=== PATIENT | female | born 1980 | race African-American/Black ===

== ENCOUNTER 2024-08-20 14:02 | Emergency (ER) | payer OTHER, SELFPAY ==
[2024-08-20 14:11] VITALS: BP 162/100; PULSE 84; O2SAT 96
[2024-08-20 14:12] VITALS: BP 148/85; PULSE 59; RESP 18; TEMP 36.8; O2SAT 98; BMI 27.5
[2024-08-20 14:31] VITALS: BP 148/85; PULSE 59; RESP 18; TEMP 36.8; O2SAT 98
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
--- OUTSIDE RECORDS SUMMARY | 2024-08-20 15:48 | XMS_ITS | Continuity of Care Document ---
Author Organization [facility] Address [address] [place] [address]- Care Team Providers Care It Support Consultant Name Role Phone Not on Staff, PCP Primary Care Physician Unavail able [place] [facility] [place] 06/19/24 - 07/19/[address] [address] Attending Physician: Matthew Wilson Admitting Physician: Admtr, ArJessy Referring Physician: Admtr, Ar8 Allergies, Adverse Reactions, Alerts Substance Reaction Severity Status penicillins Active Medications misoprostol 200 mcg oral tablet 4 tablet = 800 mcg, Vaginally, Once, Repeat in 24h if no active cramping/bleeding, # 4 tablet, 1 Refills, Soft Stop, 05/16/17 12:44:25, Tablet Start Date: 05/16/17 Status: Ordered Zofran 4 mg oral tablet 1 tablet = 4 mg, By Mouth, Every 8 hours, PRN Nausea & Vomiting, # 6 tablet, 0 Refills, Maintenance, 05/16/17 12:47:53, Tablet Start Date: 05/16/17 Stop Date: 05/18/17 Status: Ordered Problem List Condition Confirmation Course Effective Dates Status Health St atus Informant Common migraine Confirmed Active Patient Care team information Care Team Personnel Name: Not on Staff, PCP Position: S Physician (General Medicine) Member Role: PCP Care Team Related Persons Name: LOIDA FRANK Address: home [address] [place] [address] Name: AIRAM FRANK Address: home [address] [place] [address] Name: SAUNDRA BUI Address: home [address] [place] [address]
--- OUTSIDE RECORDS SUMMARY | 2024-08-20 15:48 | XMS_ITS | Continuity of Care Document ---
Author Organization [facility] Address [address] [place] [address]- Care Team Providers Care Litigation Coordinator Name Role Phone Not on Staff, PCP Primary Care Physician Unavail able [place] [facility] [place] - 04/01/[address] [address]- Discharge Disposition: A-D/C Walkout Attending Physician: Stanislaw Matta MD Admitting Physician: Stanislaw Matta MD Referring Physician: Not on Staff, Referring MD Allergies, Adverse Reactions, Alerts Substance Reaction Severity [...] Date: 05/18/17 Status: Ordered Problem List Condition Effective Dates Status Health Status Inform ant Common migraine(Confirmed) Active Vital Signs Most recent to oldest [Reference Range]: 1 2 Height 168 cm (04/01/21 12:22 PM) Weight 90.6 kg (04/01/21 12:22 PM) Oxygen Saturation [94-100 %] 99 % (04/01/21 12:22 PM) 98 % (04/01/21 12:03 PM) Pulse Rate [55-90 bpm] 64 bpm (04/01/21 12:22 PM) 78 bpm (04/01/21 12:03 PM) Body Mass Index [18.5-24.99] 32.1 *>HHI* (04/01/21 12: PM) Blood Pressure [90-138/55-84 mm Hg] 139/ 95mm Hg *H* (04/01/21: PM) Respiratory Rate [16-30 br/min] 18 br/mi n (04/01/21 12: PM) Temperature [96.8-100.4 DegF] 97.5 DegF (04/01/21: PM) Liters per Minute 0 L/min (04/01/21 12:03 PM) Mode of Delivery (Oxygen) Room air (04/01/21 12: PM) Room air (04/01/21 12:03 PM) Blood pressure sites Arm, right (04/01/21 12: PM) Temperature Route Oral (04/01/21 12: PM) Dry Weight 90.6 kg (04/01/21 12:22 PM) Weight Obtained Via Standing scale (04/01/21 12:22 PM) Dry Weight Obtained Via Standing scale (04/01/21 12: PM)
--- OUTSIDE RECORDS SUMMARY | 2024-08-20 15:48 | XMS_ITS | Continuity of Care Document ---
Author Organization [facility] Address [address] [place] [address]- Care Team Providers Care Straightening Press Operator Name Role Phone Not on Staff, PCP Primary Care Physician Unavail able Encounter [facility] [place] Date(s): 10/16/23 - 11/21/[address] [address] Attending Physician: Aubrie Ann Admitting Physician: Aubrie Ann Referring Physician: Aubrie Ann Allergies, Adverse Reactions, Alerts Substance Reaction Severity [...] Role: PCP Care Team Related Persons Name: FRANKLOIDA Address: home [address] [place] [address] Name: AIRAM FRANK Address: [address] [place] [address] Name: SAUNDRA BUI Address: [address] [place] [address]
--- OUTSIDE RECORDS SUMMARY | 2024-08-20 15:48 | XMS_ITS | Continuity of Care Document ---
Author Organization [facility] Address [address] [place] [id number]- Care Team Providers Care Search Analyst Name Role Phone Not on Staff, PCP Primary Care Physician Unavail able [place] [facility] [place] 06/16/24 - 07/19/[address] [address] Attending Physician: Carmela LIRA, Julieta Hooper Admitting Physician: Carmela LIRA, Julieta Hooper Referring Physician: Carmela LIRA, Julieta Hooper Allergies, Adverse Reactions, Alerts Substance Reaction Severity [...] Related Persons Name: FRANKLOIDA Address: [address] [place] [address] Name: FRANKMIRIAMSUSANNE Address: home [address] [place] [address] Name: SAUNDRA BUI Address: [address] [place] [address]
--- OUTSIDE RECORDS SUMMARY | 2024-08-20 15:48 | XMS_ITS | Continuity of Care Document ---
Author Organization [facility] Address [address] [place] [address]- Care Team Providers Care Launderer Hand Name Role Phone Not on Staff, PCP Primary Care Physician Unavail able Encounter [facility] [place] Date(s): 10/22/23 - 11/21/[address] [email or web address] Attending Physician: Matthew Wilson Admitting Physician: Admtr, Matthew Referring Physician: Admtr, Ar8 Allergies, Adverse Reactions, [...] Persons Name: LOIDA FRANK Address: [address] [place] [address] Name: AIRAM FRANK Address: [address] [place] [address] Name: SAUNDRA BUI Address: home [address] [place] [address]
[2024-08-20 16:08] LABS: MANUAL DIFF FLAG NO
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
[2024-08-20 16:29] LABS: Basophils Percent Auto 0.4 % (0-2); Eosinophils Absolute Auto 0.2 X10*3/uL (0.0-0.4); Eosinophils Percent Auto 3.3 % (0-4); Hematocrit 35.8 % (37.0-47.0); Hemoglobin 11.7 g/dl (12.0-16.0); Imm Gran Abs Auto 0.01 X10*3/uL (0.00-0.03); Imm Gran Pct Auto 0.2 % (0.0-0.4); Lymphocytes Absolute Auto 1.5 X10*3/uL (1.2-4.9); Lymphocytes Percent Auto 26.7 % (20-40); Mean Corpuscular HGB Conc 32.7 g/dl (31.0-35.0); Mean Corpuscular Hemoglobin 28.9 pg (27.0-33.0); Mean Corpuscular Volume 88.4 fL (80.0-98.0); Mean Platelet Volume 11.4 fL (9.4-12.3); Monocytes Absolute Auto 0.5 X10*3/uL (0.1-1.2); Monocytes Percent Auto 9.8 % (2-11); Neutrophils Absolute Auto 3.3 x10*3/uL (2.0-8.3); Neutrophils Percent Auto 59.6 % (45-73); Platelet Count 190 X10*3/uL (160-400); Red Blood Count 4.05 X10*6/uL (4.20-5.50); Red Cell Distribution Width 13.9 % (11.0-16.0); White Blood Count 5.5 X10*3/uL (4.8-10.8)
[2024-08-20 16:30] LABS: Acetaminophen LAB < 3 mcg/mL (<30); Alanine Aminotransferase 11 U/L (0-31); Albumin Level 3.5 g/dL (3.5-5.0); Alkaline Phosphatase 66 U/L (39-117); Anion Gap 9 (12-20); Aspartate Amino Transferase 20 U/L (5-31); Bilirubin Total 0.3 mg/dL (0.0-1.0); Blood Urea Nitrogen 7 mg/dL (9-16); Calcium 8.6 mg/dL (8.4-10.2); Carbon Dioxide 27 mmol/L (22-29); Chloride 107 mmol/L (96-108); Estimated Glomerular Filt Rate > 60; Ethanol < 10 mg/dL; Glucose Random 105 mg/dL (60-115); Potassium 3.4 mmol/L (3.3-5.1); Salicylate < 5.0 mg/dL (15-30); Sodium 140 mmol/L (135-145); Total Protein 6.6 g/dL (6.5-8.0)
[2024-08-20 17:50] LABS: Appearance Urine Cloudy; Color Urine Yellow; Glucose Urine UA Negative (Negative); Leukocyte Esterase Urine Large (3+) (Negative); Nitrite Urine Negative (Negative); PH 6.5 (5.0-9.0); Specific Gravity - Urine <= 1.005 (1.005-1.025); UMIC TRIGGER UACC YES; Urine Blood Negative (Negative); Urine Ketones Negative (Negative); Urine Protein Negative (Neg-Trace)
[2024-08-20 17:52] LABS: Bacteria Urine 2+ (None Seen); Hyaline Casts Urine 0-2 /LPF (0-2); RBC Urine 0-2 /HPF (0-2); UACC Culture Trigger YES; WBC Urine 21-50 /HPF (0-5)
[2024-08-20 17:54] LABS: Amphetamine Screen Urine Not Detected (Not Detect); Barbiturates, Urine Not Detected (Not Detect); Benzodiazepines Screen Urine Not Detected (Not Detect); Buprenorphine Scr Not Detected (Not Detect); Cannabinoid Screen Urine POSITIVE (Not Detect); Cocaine Screen Urine POSITIVE (Not Detect); Fentanyl, urine Not Detected (Not Detect); Methadone Screen, Urine Not Detected (Not Detect); Opiate Screen Urine Not Detected (Not Detect); Oxycodone Screen Urine Not Detected (Not Detect); Phencyclidine Screen Urine Not Detected (Not Detect)
--- NOTE | 2024-08-20 19:09 | MHC.CARE ---
Pt evaluated by CARE Team and it is determined that Pt is appropriate for ACCS level of care. ED provider and Pt are agreeable to this treatment plan. [facility] referral faxed and activated. Spoke with LABORATORY IMMUNOLOGIST on the process of referring to their ACCS which is done verbally-- encouraged the CARE Team to reach out in the morning when the whole team is present. Pt did not come to the ED with medications and reports her [id number] has them. Pt says her [id number] would be very likely able to drop them off tomorrow.
[2024-08-20] MEDS: traZODone HCL 100 MG TABLET PO (22:38)
[2024-08-20 22:39] VITALS: BP 128/89; PULSE 55; RESP 16; TEMP 36.8; O2SAT 95
[2024-08-21 06:00] VITALS: BP 129/69; PULSE 50; RESP 18; TEMP 36.6; O2SAT 97
--- NOTE | 2024-08-21 07:20 | PC.NURSE ---
Assumed care of patient at 0645. At this time the patient is observed resting quietly in their bed. No signs of distress observed. Breathing is even and unlabored.
--- NOTE | 2024-08-21 09:51 | MHC.CARE ---
T/W spoke with [facility] this morning and they reported they do not have any adult [facility] beds today. Pt has already been declined from [facility] ACCS. At this time she does not meet IPLOC per the assessment written by last evenings clinician. Pt is informed and will be provided with a Lyft to the [facility] in [place] on [facility]
[2024-08-21] MEDS: ARIPiprazole 2 MG TABLET PO (10:17)
[2024-08-21] MEDS: Sertraline HCL 100 MG TABLET PO (10:17)
[2024-08-21 10:49] VITALS: BP 129/69; PULSE 50; RESP 18; TEMP 36.6; O2SAT 97
== END 2024-08-21 10:53 | disposition home or self-care (01) ==
PROVIDERS: Emergency Provider Student in an Organized Health Care Education/Training Program
DX: F32.A Depression, unspecified (principal); R45.851 Suicidal ideations; F19.10 Other psychoactive substance abuse, uncomplicated; F41.9 Anxiety disorder, unspecified; Z59.01 Sheltered homelessness; Z79.899 Other long term (current) drug therapy
CPT/HCPCS: 36415; 80053; 80143; 80179; 80307; 81001; 85025; 87086; 87088; 99284; 99285; S9485